=== PATIENT | male | born 1965 | race African-American/Black ===

== ENCOUNTER 2024-03-30 15:37 | Emergency (ER) | payer MEDICARE, MEDICAID ==
[~2024-03-30] VITALS: Ht 165.1 cm; Wt 100.0 kg
[2024-03-30 16:05] VITALS: TEMP 98.2; O2SAT 98
[2024-03-30 18:10] VITALS: BP 148/79; PULSE 83; RESP 19
[2024-03-30] MEDS ORDERED: CIPR750T4 MT (18:13)
== END 2024-03-30 18:42 | disposition home or self-care (01) ==
LOC: ER 15:37
DX: H61.003 Unspecified perichondritis of external ear, bilateral (principal); Z90.49 Acquired absence of other specified parts of digestive tract
CPT/HCPCS: 99283

== ENCOUNTER 2024-11-07 13:34 | Emergency (ER) | payer BC, OTHER ==
[~2024-11-07] VITALS: Ht 180.3 cm; Wt 79.0 kg
[~2024-11-07 13:34] MED LIST: CIPR750T4 MT
[2024-11-07 13:39] VITALS: BP 115/73; PULSE 93; RESP 18; TEMP 98.8; O2SAT 100
== END 2024-11-07 17:00 | disposition home or self-care (01) ==
LOC: ER 13:34
DX: S93.409A Sprain of unspecified ligament of unspecified ankle, initial encounter (principal); Z90.49 Acquired absence of other specified parts of digestive tract; W22.8XXA Striking against or struck by other objects, initial encounter; Y93.89 Activity, other specified; Y92.89 Other specified places as the place of occurrence of the external cause; Y99.8 Other external cause status
CPT/HCPCS: 73110; 73630; 99284